=== PATIENT | female | born 1955 | race Caucasian/White ===

== ENCOUNTER 2023-02-26 09:05 | Outpatient (CLI) | payer MEDICARE, BC, SELFPAY | END 2023-02-26 09:06 | disposition home or self-care (01) | LOC: NFLDREF 03-01 05:59 | PROVIDERS: PCP Internal Medicine; Referring Provider Internal Medicine; Visit Provider Internal Medicine | DX: M85.80 Other specified disorders of bone density and structure, unspecified site (principal) | CPT/HCPCS: 82306 ==

== ENCOUNTER 2023-04-09 13:28 | Outpatient (CLI) | payer MEDICARE, BC, SELFPAY ==
--- OUTSIDE RECORDS SUMMARY | 2023-04-09 13:33 | XMS_ITS | Encounter Summary ---
Author Name Unknown Organization [facility] Address [address] [place] [address] Care Team Providers Care Cigarette Tester Name Role Phone Carmen Pace P.A.-C. Primary Care Provider Encounter Details Date Type Department Care Team (Late st Contact Info) Description 03/02/2023 Orders Only [facility] Carmen Pace P.AKiel-C. [address] [place] [phone] Screening Mammogram Breast Cancer Social History Tobacco Use Types Packs/Day Years Used Date Smoking Tobacco: Former Smokeless Tobacco: Never Alcohol Use Standard Drinks/Week Comments Yes 2 (1 standard drink = 0.6 oz pur e alcohol) Humiliation, Afraid, Rape, and Kick questionnair e Answer Date Recorded Within the last year, have y ou been afraid of your partner or ex-partner? No 12/25/2021 Within the last year, have y ou been humiliated or emotionally abused in other ways by your partner or ex-partner? No Within the last year, have y ou been kicked, hit, slapped, or otherwise physically hurt by your partner or ex-partner? No 12/25/2021 Within the last year, have y ou been raped or forced to have any kind of sexual activity by your partner or ex-partner? No 12/25/2021 Social Connection and Isolation Panel [NHANES] A nswer Date Recorded In a typical week, how many times do you talk on the phone with family, friends, or neighbors? Twice a week 12/26/19 How often do you get togethe r with friends or relatives? Once a week 12/25/2021 How often do you attend chur ch or confucianist services? 1 to 4 times per year 12/25/2021 Do you belong to any clubs o r organizations such as mandaeism groups, unions, fraternal or athletic groups, or school groups? No 12/25/2021 How often do you attend meet ings of the clubs or organizations you belong to? Never 12/25/2021 Are you , , di vorced, , never , or living with a partner? 12/25/2021 AUDIT-C Answer Date Recorded Q1: How often do you have a drink containing alcohol? Monthly or less 12/25/2021 Q2: How many drinks containi ng alcohol do you have on a typical day when you are drinking? Patient does not drink Q3: How often do you have si x or more drinks on one occasion? Never 12/25/2021 Overall Financial Resource Strain (CARDIA) Answe r Date Recorded How hard is it for you to pa y for the very basics like food, housing, medical care, and heating? Not very hard 12/25/2021 PHQ-2 Answer Date Recorded PHQ-2 Score 0 01/21/2022 [facility] of Occupat ional Health - Occupational Stress Questionnaire Answer Date Recorded Do you feel stress - tense, restless, nervous, or anxious, or unable to sleep at night because your mind is troubled all the time - these days? Only a little 12/25/2021 Exercise Vital Sign Answer Date Recorde d On average, how many days pe r week do you engage in moderate to strenuous exercise (like a brisk walk)? 0 days 12/25/2021 On average, how many minutes do you engage in exercise at this level? 0 min 12/25/2021 Hunger Vital Sign Answer Date Recorded Within the past 12 months, y ou worried that your food would run out before you got the money to buy more. Never true 12/26/19 22 Within the past 12 months, t he food you bought just didn't last and you didn't have money to get more. Never true 12/25/2021 PRAPARE - Transportation Answer Date Re corded In the past 12 months, has l ack of transportation kept you from medical appointments or from getting medications? No 11/28 In the past 12 months, has l ack of transportation kept you from meetings, work, or from getting things needed for daily living? No 12/25/2021 Housing Stability Vital Sign Answer Nnamdi e Recorded In the last 12 months, was t here a time when you were not able to pay the mortgage or rent on time? No 12/25/2021 In the last 12 months, how many places have you lived? 1 12/25/2021 In the last 12 months, was t here a time when you did not have a steady place to sleep or slept in a half-way (including now)? No 12/25/2021 Depression Answer Date Recor ded PHQ-9 Total Score (max 27) 1 01/21 Nutrition Answer Date Recorded Nutrition: EVOO Fat Source Yes 12/25 On average, how many serving s of fruits and vegetables do you eat per day (serving size is equal to 1 cup or approximately the size of a tennis ball)? 0-1 12/25/2021 Dental Answer Date Recorded Dental: Regular Dentist Yes 01/27/20 21 Employment Answer Date Recorded Employment status Employed and actively working without restrictions 12/25/2021 Education Answer Date Recorded What is the highest level of school you have completed or the highest degree you have received? 12th grade 01/19/2020 Sex and Gender Information Value Date Recorded Sex Assigned at Female 01/05/2020 9:28 AM CDT Gender Identity Female 01/25/2018 8:35 AM CDT Sexual Orientation Straight 01/25/2018 8: 35 AM CDT documented as of this encounter Plan of Treatment Not on file documented as of this encounter Visit Diagnoses Diagnosis Screening Mammogram Breast Cancer documented in this encounter Additional Health Concerns Assessment Noted Time PHQ-9 Depression Total Score: 1 01/22/20 8:33 AM CDT documented as of this encounter Care Teams Cigarette Tester Relationship Specialty Start Date End Date Carmen Pace P.A.-C. [address] [place], [place] [id number] Aparicio [phone] PCP - General 04/02/22 03/23/23 [facility] [address] [place] [address] Dentist Dentistry 01/21/22 documented as of this encounter
--- OUTSIDE RECORDS SUMMARY | 2023-04-09 13:33 | XMS_ITS | Encounter Summary ---
Author Name Unknown Organization [facility] Address [address] [place] [address] Care Team Providers Care Store Lead Name Role Phone Carmen Pace P.A.-C. Primary Care Provider Encounter Details Date Type Department Care Team (Late st Contact Info) Description 12/01/2022 Orders Only [facility]NT Carmen Pace P.AKiel-C. [address] [place] [phone] Social History Tobacco Use Types Packs/Day Years [...] 12/25/2021 How often do you attend chur or bahai services? 1 to 4 times per year 12/25/2021 Do you belong to any clubs o r organizations such as bahai groups, unions, fraternal or athletic groups, or [...] Answer Date Recorded PHQ-2 Score 0 01/21/2022 [facility] of Occupat ional Health - Occupational Stress [...] place to sleep or slept in a care home (including now)? No 12/25/2021 Depression Answer Date [...] documented as of this encounter Visit Diagnoses Not on filedocumented in this encounter Additional Health Concerns Assessment Noted Time PHQ-9 Depression Total Score: 1 01/22/20 22 8:33 AM CDT documented as of this encounter Care Teams Store Lead Relationship Specialty Start Date End Date Carmen Pace P.A.-C. [address] [place] [address] BJ PRAKASH [phone] PCP - General 04/02/22 03/23/23 [facility] [address] [place] [address] Dentist Dentistry 01/21/22 documented as of this encounter
--- OUTSIDE RECORDS SUMMARY | 2023-04-09 13:33 | XMS_ITS ---
Author Name Unknown Organization [facility] Address [address] [place] [address] Care Team Providers Care Manager Outreach Name Role Phone Unavailable Unavailable Unavailable Surgery Details Not on file Complications Check Surgery Details section. Procedure Estimated Blood Loss Check Surgery Details section. Procedure Findings Check Surgery Details section. Procedure Specimens Taken Check Surgery Details section.
--- OUTSIDE RECORDS SUMMARY | 2023-04-09 13:33 | XMS_ITS | Encounter Summary ---
Author Name Unknown Organization [facility] Address [address] [place] [address] Care Team Providers Care Automatic Dispenser Mechanic Name Role Phone Carmen Pace-Mimi Primary Care Provider Reason for Visit * Reason Comments Med Refill Encounter Details Date Type Department Care Team (Late st Contact Info) Description 01/21/2023 Refill Department of Community Internal Medicine in [place], [place] [address] [place] [address] Carmen Pace P.A.-C. [address] [place] [phone] Med Refill Social History Tobacco Use Types Packs/Day Years [...] How often do you attend chur or scientology services? 1 to 4 times per year 12/25/2021 Do you belong to any clubs o r organizations such as sikhism groups, unions, fraternal or athletic groups, or [...] Answer Date Recorded PHQ-2 Score 0 01/21/2022 [facility] of Occupat ional Health - Occupational Stress [...] place to sleep or slept in a penitentiary (including now)? No 12/25/2021 Depression Answer Date [...] AM CDT documented as of this encounter Miscellaneous Notes * Telephone Encounter - Carmen Pace P.A.-C. - 01/21/2023 4:41 PM CDT 90 days provided. Patient due for annual medication review. documented in this encounter Plan of Treatment Not on file documented as of this encounter Visit Diagnoses Diagnosis Depression Anxiety documented in this encounter Additional Health Concerns Assessment Noted Time PHQ-9 Depression Total Score: 1 01/22/20 22 8:33 AM CDT documented as of this encounter Care Teams Automatic Dispenser Mechanic Relationship Specialty Start Date End Date Carmen Pace P.A.-C. [address] [place] [address] [place] [phone] PCP - General 04/02/22 03/23/23 [facility] [address] [place] [address] Dentist Dentistry 01/21/22 documented as of this encounter
--- OUTSIDE RECORDS SUMMARY | 2023-04-09 13:33 | XMS_ITS | Encounter Summary ---
Author Name Unknown Organization [facility] Address [address] [place] [address] Care Team Providers Care Chaser Apprentice Name Role Phone Elsewhere, Pcp Primary Care Provider Unavailabl e Reason for Visit * Reason Comments Breast Cancer Screening Encounter Details Date Type Department Care Team (Late st Contact Info) Description 03/24/2023 Patient Outreach Department of Community Internal Medicine in [place], [place] [address] [place] [phone] Carmen Pace P.A.-C. [address] [place] [address] Breast Cancer Screening Social History Tobacco Use Types Packs/Day Years [...] often do you attend chur ch or church services? 1 to 4 times per year 12/25/2021 Do you belong to any clubs o r organizations such as adventist groups, unions, fraternal or athletic groups, or [...] Answer Date Recorded PHQ-2 Score 0 01/21/2022 [facility]ational [facility] Questionnaire Answer [...] documented as of this encounter Care Teams Chaser Apprentice Relationship Specialty Start Date End Date Elsewhere, Pcp PCP - General Internal Medicine 03/24/23 [facility] [address] [place] [address] Dentist Dentistry 01/21/22 documented as of this encounter
--- OUTSIDE RECORDS SUMMARY | 2023-04-09 13:33 | XMS_ITS | Clinical Summary ---
Author Name Unknown Organization [facility] Address [place], [place] [address] Care Team Providers Care Mental Health Program Specialist Name Role Phone Eulalia Prabhakar TENANT SELECTOR Primary Care Provider [phone] Allergies No known active allergies Medications No known medications Active Problems Problem Noted Date Diagnosed Date Acquired absence of both cervix and uterus 02/17 Immunizations Name Administration Dates Next Due COVID-19 vaccine ([employer] 30mcg/0.3mL) PF, MDV 06/08/2020,05/18/2020 Influenza Virus, Unspecified 01/29/2016, 01/24/2015,01/17/2014,2012 Influenza, High-dose Quadriv alent Inactivated 01/23/2020 Influenza, IIV4 01/19/2019, 8,02/17/2017,2015 Influenza, IIV4 (=>6mos) MDV 01/24/2015 Pneumococcal Poly,23-Valent (Pneumovax) 01/23/2020 Tdap 02/24/2013 Zoster (Zostavax-ZVL, live) 02/24/2013 Family History Medical History Relation Name Comments Anesthesia Problem No Family History Social History Tobacco Use Types Packs/Day Years Used Date Smoking Tobacco: Former Smokeless Tobacco: Never Comments:quit between 10-15 years ago Alcohol Use Standard Drinks/Week Comments Yes 10 (1 standard drink = 0.6 oz pu re alcohol) Social Connections Answer Date Recorded Frequency of Communication with Friends and Fami ly Not on file 03/29/2021 Financial Resource Strain Answer Date R ecorded Difficulty of Paying Living Expenses Not on file 03/29/2021 Difficulty of Paying Living Expenses Not on file 03/29/2021 Sex and Gender Information Value Date Recorded Sex Assigned at Not on file Gender Identity Not on file Sexual Orientation Not on file Obstetrics History Last Filed Vital Signs Vital Sign Reading Time Taken Comments Blood Pressure 143/87 03/06/2021 5:59 PM PERSONAL COUNSELOR Pulse 78 03/06/2021 5:59 PM PERSONAL COUNSELOR Temperature 36.9 ??C (98.5 ??F) 03/06/2021 5:59 PM CS T Respiratory Rate 16 03/06/2021 5:59 PM PERSONAL COUNSELOR Oxygen Saturation 98% 03/06/2021 5:59 PM PERSONAL COUNSELOR Inhaled Oxygen Concentration - - Weight 49.4 kg (108 lb 12.8 oz) 03/06/2021 5:59 PM PERSONAL COUNSELOR Height 154.9 cm (5' 1) 03/06/2021 5:59 PM PERSONAL COUNSELOR Body Mass Index 20.56 03/06/2021 5:59 PM PERSONAL COUNSELOR Plan of Treatment Health Maintenance Due Date Last Done Comments Depression screening for age 12+ 1966 Hepatitis C screening for ag e 18-79 1972 Mammogram for age 45-75 03/05/2009 03/05/2008, 12/27 Lipids for age 45-75 02/03/2012 02/02/2007 Zoster (shingles) series for age 50+ (2 of 3) 04/21/2013 02/24/2013 Colonoscopy through age 75 01/25/2017 01/25/2007 DEXA/DXA scan for age 65+ 2019 Medicare Wellness for age 65+ 2019 Pneumococcal series for age 65+ (2 of 2 - PCV) 01/22/2021 01/23/2020 BMI (ht and wt on same day) for age 18+ 09/10/2021 09/10/2020 COVID-19 vaccine series (2022- season) 2022 08/21/2021, 12/26/2020, 06/08/2020, Additional history exists Influenza for age 65+ 11/27/2022 01/23/2020 , 01/19/2019, 01/18/2018, Additional history exists Tetanus booster 02/24/2023 02/24/2013 Tdap Completed 02/24/2013 Advance Directives Latest Code Status on File Code Status Date Activated Date Inactivated Comments Full Code 09/11/2020 8:57 AM 09/11/2020 6:28 PM Question Answer Comments Code Status Discussion: Discussed Care Teams Mental Health Program Specialist Relationship Specialty Start Date End Date Eulalia Prabhakar NP PCP - General Nurse Practitioner 09/06/20
--- OUTSIDE RECORDS SUMMARY | 2023-04-09 13:33 | XMS_ITS | Clinical Summary ---
Author Name Unknown Organization [facility] Address [address] [place] [address] Care Team Providers Care Switchgear Repairer Name Role Phone Elsewhere, Pcp Primary Care Provider Unavailabl e Source Comments Patient records contain information from all sites at [facility]. For routine questions regarding patient records, call [phone] during business hours, M-F 8:00 AM - 5:00 PM Central Time. Record requests for emergency care only can be directed to [phone] at any time.[facility] Allergies No known active allergies Medications Medication Sig Dispensed Refills Start Date End Date Status calcium carbonate-vitamin D3 1,500 mg (600 mg calcium)-10 mcg (400 Unit) per tablet Take 1 tablet by mouth 2 (two) times a day before breakfast and dinner. 0 2021 Active escitalopram (LEXAPRO) 10 mg tabletIndications:De pression Anxiety Take 1 tablet (10 mg total) by mouth daily. 90 tablet 0 01/21/2023 Active Hospital, Clinic, or Other Facility Administered Medication Ordered Dose Route Frequency Start Date End Date Status lidocaine-EPINEPHrine 1 %-1:100,000 injection 5 mL (XYLOCAINE W/EPI)Indications:Leukodystro phy, Unspecified (HCC) 5 mL Ifil Once 05/08/2021 Ac tive Active Problems Patient Care Coordination No te Formatting of this note migh t be different from the original. Authorization to Disclose Protected Health Information to Cheo Fu (), Leobardo Fu (Son), and Can Fu (Son). 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 Chronic Kidney Disease Stage 2 Glomerular Filtration Rate 60 To 89 01/30/2021 Loss Hearing Bilateral 01/30/2021 Overview: Wears hearing aids. Hysterectomy Status Post 02/17/2017 Resolved Problems Problem Noted Date Diagnosed Date Resolved Date Leukodystrophy, Unspecified 06/02/2021 06/02/2021 Encounters Date Type Department Care Team Description 03/24/2023 Patient Outreach Department of Community Internal Medicine in [place], [place] [address] [place] [address] Carmen Pace, P.A.-C. Breast Cancer Screening 03/02/2023 [facility], P.A.-C. Screening Mammogram Breast Cancer 01/21/2023 Refill Department of Community Internal Medicine in [place], [place] [address] [place] [address] Carmen Pace, P.A.-C. Med Refill from Last 3 Months Immunizations Name Administration Dates Next Due HZV (ZOSTAVAX) 02/24/2013 Influenza high dose QV(65 ye ars or older) (PF) 01/21/2022,01/30/2021,01/23/2020 Influenza, Unspecified 01/29/2016,2014,01/17/2014,2012 PCV20 01/21/2022 PPSV23 01/23/2020 RZV (SHINGRIX) 01/21/2022(Deferred: Parental de cision) SARS-COV-2 (COVID-19) - PFIZ ER BIVALENT TS(12 YEARS OR OLDER) 02/03/2022 SARS-COV-2 (COVID-19) - PFIZ ER TS(12 years or older) 08/21/2021 Tdap 02/24/2013 influenza vaccine quad (FLUZONE/FLUARIX) (6 months and older)(PF) 01/19/2019,01/18/2018,02/17/2017 Family History Medical History Relation Name Comments Lung cancer Brother Wyatt Parkinson disease Father Rober Brain Aneurysm Mother Mary Ovarian cancer Sister 1 Pat Heart disease Sister 2 Winnie Relation Name Status Comments Brother Wyatt (Age 76) cancer Father Rober (Age 86) Parkinson' s Mother Mary (Age 77) brain aneu rysm Sister 1 Pat Alive Sister 2 Winnie (Age 84) heart Son 1 Leobardo Alive Son 2 Can Alive Social History Tobacco Use Types Packs/Day Years Used Date Smoking Tobacco: Former Smokeless Tobacco: Never Tobacco Cessation:Counseling Given: Not Answered Alcohol Use Standard Drinks/Week Comments Yes 2 [...] week 12/25/2021 How often do you attend [facility] or orthodoxy services? 1 to 4 times per year 12/25/2021 Do you belong to any clubs o r organizations such as hinduism groups, unions, fraternal or athletic groups, or [...] Answer Date Recorded PHQ-2 Score 0 01/21/2022 [facility]at affinity health partnersal Health - Occupational Stress Questionnaire Answer Date [...] place to sleep or slept in a halfway (including now)? No 12/25/2021 Depression Answer Date [...] Date Recorded Dental: Regular Dentist Yes 01/27/20 Employment Answer Date Recorded Employment status Employed [...] Orientation Straight 01/25/2018 8: 35 AM CDT Last Filed Vital Signs Vital Sign Reading Time Taken Comments Blood Pressure 110/69 02/03/2022 10:43 AM SERVICE ATTENDANT Pulse 71 02/03/2022 10:43 AM SERVICE ATTENDANT Temperature 36.4 ??C (97.6 ??F) 02/03/2022 10:[address] Respiratory Rate 12 02/03/2022 10:43 AM SERVICE ATTENDANT Oxygen Saturation 97% 06/20/2021 8:20 AM CDT Inhaled Oxygen Concentration - - Weight 48 kg (105 lb 13.1 oz) 02/03/2022 10:43 A M SERVICE ATTENDANT Height 155.3 cm (5' 1.14) 02/03/2022 10:[address] Body Mass Index 19.9 02/03/2022 10:43 AM SERVICE ATTENDANT Plan of Treatment Health Maintenance Due Date Last Done Comments CT Colonography 1955 Cologuard 1955 Hepatitis C Screening 1955 Colonoscopy 08/21/2021 08/21/2016 (Perf ormed elsewhere), 01/25/2007 Colorectal Cancer Surveillance 08/21/2021 Mammogram 02/03/2023 02/03/2022, 1106/2020, 01/23/2020, Additional history exists Zoster Vaccines (3 of 3) 02/11/2023 12/17/2022, 01/28 DTaP,Tdap,and Td Vaccines (2 - Td or Tdap) 02/24/2023 02/24/2013 Depression Screening (Annual PHQ-2) 03/29/2023 Fall Risk Screen (Annual) 03/29/2023 Fasting Glucose for Diabetes Screening 12/24/2024 12/24/2021, 03/06/2021, 01/30/2021, Additional history exists Bone Density Scan (Osteoporo sis Screen) Discontinued 2021 Pneumococcal vaccine (65+ years) Completed 01/22/20, 01/23/2020 Visit: Medicare Annual Wellness Discontinued , 01/21/2022 Influenza Vaccine Completed 12/17/2022, , 01/30/2021, Additional history exists COVID-19 Vaccine Completed 03/11/2023, 10/2021, 08/21/2021, Additional history exists Care Teams Switchgear Repairer Relationship Specialty Start Date End Date Elsewhere, Pcp PCP - General Internal Medicine 03/24/23 [facility] [address] [place] [address] Dentist Dentistry 01/21/22
--- OUTSIDE RECORDS SUMMARY | 2023-04-09 13:33 | XMS_ITS | Referral Summary ---
Author Name Unknown Organization [facility] Address [address] [place] [address] Care Team Providers Care Assistant Manager Retail Name Role Phone Elsewhere, Pcp Primary Care Provider Unavailabl e Source Comments Patient records contain information from all sites at [facility]. For routine questions regarding patient records, call [phone] during business hours, M-F 8:00 AM - 5:00 PM Central Time. Record requests for emergency care only can be directed to [phone] at any time.[facility] Encounters Date Type Department Care Team Description 03/24/2023 Patient Outreach Department of Community Internal Medicine in [address] [phone] Carmen Pace, P.A.-C. Breast Cancer Screening 03/02/2023 [facility] Pace, P.A.-C. Screening Mammogram Breast Cancer 01/21/2023 Refill Department of Community Internal Medicine in [address] [phone] Carmen Pace, P.A.-C. Med Refill from Last 3 Months Allergies No known active allergies Medications Medication [...] to Disclose Protected Health Information to Cheo Nickie (), Leobardo Nickie (Son), and Can Nickie (Son). Problem Noted Date Diagnosed Date Diverticulosis [...] Date Resolved Date Leukodystrophy, Unspecified 06/02/2021 06/02/2021 Immunizations Name Administration Dates Next Due HZV [...] quad (FLUZONE/FLUARIX) (6 months and older)(PF) 01/19/2019,01/18/2018,02/17/2017 Social History Tobacco Use Types Packs/Day Years [...] often do you attend chur ch or buddhist services? 1 to 4 times per year 12/25/2021 Do you belong to any clubs o r organizations such as jain groups, unions, fraternal or athletic groups, or [...] Answer Date Recorded PHQ-2 Score 0 01/21/2022 [facility] of Occupat ional [facility] - Occupational Stress Questionnaire Answer Date Recorded [...] place to sleep or slept in a residential (including now)? No 12/25/2021 Depression Answer Date [...] Comments Blood Pressure 110/69 02/03/2022 10:43 AM CARNIVAL WORKER Pulse 71 02/03/2022 10:43 AM CARNIVAL WORKER Temperature 36.4 ??C (97.6 ??F) 02/03/2022 10:[address] Respiratory Rate 12 02/03/2022 10:43 AM CARNIVAL WORKER Oxygen Saturation 97% 06/20/2021 8:20 AM CDT Inhaled Oxygen Concentration - - Weight 48 kg (105 lb 13.1 oz) 02/03/2022 10:43 A M CARNIVAL WORKER Height 155.3 cm (5' 1.14) 02/03/2022 10:[address] Body Mass Index 19.9 02/03/2022 10:43 AM CARNIVAL WORKER Plan of Treatment Not on file Care Teams Assistant Manager Retail Relationship Specialty Start Date End Date Elsewhere, Pcp PCP - General Internal Medicine 03/24/23 [facility] [address] [place] [address] Dentist Dentistry 01/21/22
--- NOTE | 2023-04-09 14:00 | CRLHL7_ITS ---
For Patients: As a result of the Cures Act, medical imaging exams and procedure reports are released immediately into your electronic medical record. You may view this report before your referring provider. If you have questions, please contact your health care provider. BILATERAL SCREENING MAMMOGRAM WITH COMPUTER-AIDED DETECTION AND TOMOSYNTHESIS TECHNIQUE: CC and MLO views were obtained. These mammographic images have been obtained using full-field digital technique. These mammographic images were interpreted with the benefit of computer-aided detection. Breast Tomosynthesis was used in this interpretation. COMPARISON FILM: 02/03/22, 01/30/21, 01/23/20. FINDINGS: There are scattered areas of fibroglandular density IMPRESSION: There is no radiographic evidence for malignancy. ASSESSMENT: BI-RADS Category 1: Negative RECOMMENDATION: Routine screening mammogram in 1 year. A lay language report of this examination will be provided to the patient. Mike Ring M.D. Diagnostic Radiologist [email or web address] FRANSISCO/blue Transcribed: 4:41 p.mKiel mcarthur/Dictated by: Mike Ring MD @ 04/14/2023 11:52:00 AM (Electronically Signed)
== END 2023-04-09 13:29 | disposition home or self-care (01) ==
LOC: MAMMO 13:30
PROVIDERS: PCP Internal Medicine; Visit Provider Internal Medicine
DX: Z12.31 Encounter for screening mammogram for malignant neoplasm of breast (principal)
CPT/HCPCS: 77063; 77067

== ENCOUNTER 2024-02-10 09:55 | Emergency (ER) | payer MEDICARE, BC, SELFPAY ==
[2024-02-10 10:04] VITALS: BP 125/79; PULSE 87; RESP 18; TEMP 38.2; O2SAT 95; BMI 20.8
[2024-02-10 10:46] LABS: Eosinophils Absolute Auto 0.01 K/uL (0.00-0.50); Eosinophils Percent Auto 0.1 % (0.0-7.0); Hematocrit 43.6 % (33.0-51.0); Hemoglobin* 14.2 gm/dL (12.0-16.0); Immature Granulocytes Abs Auto 0.04 K/uL (0.00-0.30); Immature Granulocytes Pct Auto 0.4 %; Lymphocytes Percent Auto 6.2 % (20-44); Mean Corpuscular HGB Conc 33 gm/dL (32-36); Mean Corpuscular Hemoglobin 30 pg (26-34); Mean Corpuscular Volume 92 fL (80-100); Monocytes Percent Auto 4.5 % (0.0-11.0); Neutrophils Percent Auto 88.8 % (42.0-72.0); Platelet Count* 119 K/uL (140-440); RDW Coefficient of Variation % 12.9 % (11.5-15.5); Red Blood Count 4.73 m/uL (4.00-5.20); White Blood Count* 10.48 K/uL (4.50-11.00)
[2024-02-10 10:57] LABS: Slide Review Reflex No
--- NOTE | 2024-02-10 11:02 | CRLHL7_ITS ---
For Patients: As a result of the Century Cures Act, medical imaging exams and procedure reports are released immediately into your electronic medical record. You may view this report before your referring provider. If you have questions, please contact your health care provider. INDICATION: Lower abdominal pain. Altered bowel habits status post cholecystectomy. COMPARISON: None available. TECHNIQUE: CT of the abdomen and pelvis with 64 cc of Isovue 370 intravenous contrast. Please note that all CT scans at this facility use dose modulation, iterative reconstruction, and/or weight-based dosing when appropriate to reduce radiation dose to as low as reasonably achievable. FINDINGS: ABDOMEN Liver: Normal contour and attenuation. No significant focal lesion. No intrahepatic biliary ductal dilatation. Patent portal veins. Patent hepatic veins. Gallbladder: Cholecystectomy. Normal common duct caliber. Pancreas: Normal contour and attenuation. No peripancreatic inflammatory changes. No significant focal lesion. Normal main duct caliber. Spleen: Not enlarged. No significant focal lesion. Patent splenic artery and vein. Adrenal Glands: Symmetrical adrenal glands. No significant focal lesion. Kidneys: Normal bilateral renal attenuation. No significant focal lesion. No nephrolith. No dilatation of the intrarenal collecting systems. No ureteral stone. Nondilated ureters. Patent renal arteries and veins. Gastrointestinal tract: Extensive diverticulosis of the descending and sigmoid colon with superimposed pericolic fat stranding consistent with acute uncomplicated diverticulitis of the proximal sigmoid colon (series 2; image 109). Normal appendix. Vascular: Chronic aortoiliac atherosclerotic mural calcification. Abdominal aorta and its major proximal branches including the celiac, superior mesenteric, inferior mesenteric, renal, and bilateral common iliac arteries are patent. Inferior vena cava, portal and superior mesenteric veins are patent. Circumaortic left renal vein. Peritoneal Cavity/Retroperitoneum: No ascites. No adenopathy. PELVIS No bladder lesion is identified. Hysterectomy. No significant ascites. No adenopathy. SKELETON AND BODY WALL Incidental note is made of a bone island in the left iliac wing. LOWER THORAX 7 mm left lower lobe solid nodule (3; 6). Partially included lower thoracic wall, lungs, pleural spaces and mediastinum are otherwise without significant incidental findings. IMPRESSION: 1. Acute uncomplicated sigmoid diverticulitis. 2. Incidental 7 mm left lower lobe solid nodule for which six-month follow-up is recommended according to Fleischner guidelines. RECOMMENDATION: 6 MONTH FOLLOW-UP NONCONTRAST CHEST CT. Please note that all CT scans at this facility use dose modulation, iterative reconstruction, and/or weight-based dosing when appropriate to reduce radiation dose to as low as reasonably achievable. Dictated by Kenn Rowley MD @ 02/10/2024 12:20:03 PM (Electronically Signed)
--- NOTE | 2024-02-10 11:03 | ED_ITS ---
HPI - Abdominal Pain General Chief Complaint: Abdominal Pain Stated Complaint: sharp abdominal pains Time Seen by Provider: 02/10/24 10:52 History of Present Illness HPI narrative: This 68-year-old female comes in with abdominal pain that started about a week ago and now has become more constant. She states that the pain is in her lower abdomen. She does not report any other symptoms. She has not had any dysuria symptoms. Her significant other stated that she had similar pain about a year ago and was prescribed a medicine for this. She took 1 of these tablets. She arrives here with normal vital signs except she does have a temperature of 100.8? F. Related Data Previous Rx's ?Medication ?Instructions ?Recorded escitalopram oxalate 10 mg tablet 10 mg PO QDAY #90 tabs 03/11/23 amoxicillin 875 mg-potassium 1 tab PO BID #14 tabs 02/10/24 clavulanate 125 mg tablet Allergies Allergy/AdvReac Type Severity Reaction Status Date / Time No Known Drug Allergies Allergy Verified 02/10/24 11:54 Review of Systems Status of ROS Reports: 10 or more systems reviewed and unremarkable except as noted in History and below Narrative Constitutional: No fevers, no weight gain or loss. Eyes: No discharge. No vision changes. HENT: No congestion, no sore throat, no ear pain. Cardiovascular: No chest pain, no palpitations. Respiratory: No shortness of breath, no wheezes, no cough. Gastrointestinal: No vomiting, no diarrhea. Lower abdominal pain as described above. Genitourinary: No dysuria, no hematuria. Musculoskeletal: Normal range of motion. Skin: No rashes, no pruritis. Neurological: No dizziness, weakness, sensory change, speech change. Endo/Heme/Allergies: No bruising or bleeding. No polydipsia. Pysch: no suicidality, no anxiety, no insomnia. All other systems reviewed and are negative. [facility] Medical History (Updated 02/10/24 @ 12:40 by Bryan Costa MD) History of diverticulitis (01/14/22) ?Z87.19 - Personal history of other diseases of the digestive system (ICD-10) Surgical History (Updated 04/09/22 @ 08:44 by Winnie Preciado MD) History of cataract surgery ?Z98.49 - Cataract extraction status, unspecified eye (ICD-10) History of cholecystectomy (2020) ?Z90.49 - Acquired absence of other specified parts of digestive tract (ICD- 10) History of tonsillectomy (1965) ?Z90.89 - Acquired absence of other organs (ICD-10) History of bilateral tubal ligation (04/22/81) ?Z98.51 - Tubal ligation status (ICD-10) History of hysterectomy (2012) ?Z90.710 - Acquired absence of both cervix and uterus (ICD-10) Family History (Updated 04/08/22 @ 13:16 by Alis Stephen) Brother Lung cancer Father Parkinson's disease Mother Brain aneurysm Sister Ovarian cancer Coronary artery disease Social History (Updated 03/11/23 @ 14:02 by Mari Turcios ~ [place]) What is your current living situation?: I presently have a place to live Problems where you live: declined to answer In the past 12 months, utilities in danger of being shut off: no In the past 12 mos, have been you worried that your food would run out before yo u had money to buy more?: never true In the past 12 mos, the food you bought just didn't last and you didn't have money to buy more?: never true Smoking Status: Former smoker How often does anyone, including family, friends and others, physically hurt you : never How often does anyone, including family, friends and others, insult or talk down to you: never How often does anyone, including family, friends and others, threaten you with harm: never How often does anyone, including family, friends and others, scream or curse at you: never Exam Narrative: Exam Narrative: Constitutional: Well-developed, well-nourished, no acute distress. HEENT: Normocephalic, atraumatic. Neck: Normal range of motion. Nontender. Supple. Heart: Regular. No murmurs. Normal rate. Intact distal pulses. Lungs: Clear to auscultation. No chest discomfort. No wheezes, rhonchi, or ra les. Abdomen: Decreased bowel sounds. Tenderness across the lower abdomen. No obvious rebound tenderness. Genitalia: Deferred. Back: No midline tenderness. Normal range of motion. Extremities: Normal range of motion. No injury. Skin: Intact. No rash. Warm. No erythema or pallor. Neurologic: No altered sensation. No weakness. Alert and oriented. Psychiatric: No suicidality. No anxiety or depression. No insomnia. Nursing notes and vitals signs are reviewed. Const: Vital Signs, click to edit/add: Vital Signs - 24 hr 02/10/24 10:04 Temperature 100.8 F H Pulse Rate [Right Pulse Oximeter] 87 Respiratory Rate 18 Blood Pressure [Ri ght Upper Arm] 125/79 Pulse Oximetry 95 Oxygen Delivery Me thod Room Air Course Vital Signs Vital signs: Initial Vital Signs Temperature 100.8 F H 02/10/24 10:04 Temperature Source Temporal Artery Scan 02/10/24 10:04 Pulse Rate 87 02/10/24 10:04 Pulse Rhythm Regular 02/10/24 10:04 Pulse Strength 3+ Normal 02/10/24 10:04 Respiratory Rate 18 02/10/24 10:04 Blood Pressure 125/79 02/10/24 10:04 Blood Pressure Mean 94 02/10/24 10:04 Blood Pressure Position Sitting 02/10/24 10:04 Pulse Oximetry 95 02/10/24 10:04 Oxygen Delivery Method Room Air 02/10/24 10:04 Vital Signs Temperature 100.8 F H 02/10/24 10:04 Pulse Rate 87 02/10/24 10:04 Respiratory Rate 18 02/10/24 10:04 Blood Pressure 125/79 02/10/24 10:04 Pulse Oximetry 95 02/10/24 10:04 Oxygen Delivery Method Room Air 02/10/24 10:04 Temperature 100.8 F H 02/10/24 10:04 Pulse Rate 87 02/10/24 10:04 Respiratory Rate 18 02/10/24 10:04 Blood Pressure 125/79 02/10/24 10:04 Pulse Oximetry 95 02/10/24 10:04 Oxygen Delivery Method Room Air 02/10/24 10:04 MDM - Abdominal Pain MDM Narrative Medical decision making narrative: This patient comes in with lower abdominal pain as described above. An IV was established and labs are acquired which returned with reassuring results. CT imaging of the abdomen and pelvis shows evidence of diverticulitis. This is uncomplicated. She also has an incidental finding of a 7 mm nodule in the left lower lung and was instructed to follow up in 6 months for reimaging. She did a rrive with a borderline fever but her white count is in normal range and other vital signs are all normal. The patient is not in much distress and feels okay to take Tylenol and ibuprofen as needed and directed for pain relief. I did provide a prescription for Augmentin. Lab Data Labs: Lab Results 02/10/24 02/10/24 Range/Units 10:30 10:58 WBC 10.48 (4.50-11.00) K/uL RBC 4.73 (4.00-5.20) m/uL Hgb 14.2 (12.0-16.0) gm/dL Hct 43.6 (33.0-51.0) % MCV 92 (80-100) fL MCH 30 (26-34) pg MCHC 33 (32-36) gm/dL RDW Coeff of Manan 12.9 (11.5-15.5) % Plt Count 119 L (140-440) K/uL Neut % (Auto) 88.8 H (42.0-72.0) % Lymph % (Auto) 6.2 L (20-44) % Sutter % (Auto) 4.5 (0.0-11.0) % Eos % (Auto) 0.1 (0.0-7.0) % Baso % (Auto) 0.0 (0.0-3.0) % Neut # (Auto) 9.30 H (1.7-7.0) K/uL Lymph # (Auto) 0.60 L (0.90-2.90) K/uL Sutter # (Auto) 0.50 (0.00-0.90) K/UL Eos # (Auto) 0.01 (0.00-0.50) K/uL Baso # (Auto) 0.00 (0.00-0.30) K/uL Abs Immat Gran (auto) 0.04 (0.00-0.30) K/uL Imm/Tot Granulo (auto) 0.4 % Sodium 135 (135-149) mmol/L Potassium 4.2 (3.6-5.1) mmol/L Chloride 101 (96-114) mmol/L Carbon Dioxide 21 (20-32) mmol/L Anion Gap 13 (7-15) mEq/L BUN 21 (7-30) mg/dL Creatinine 0.8 (0.5-1.5) mg/dL Estimated Creat Clear 40.07 Estimated GFR 80 ml/min Glucose 139 H (60-115) mg/dL Calcium 9.3 (8.4-10.6) mg/dL Urine Color Yellow (Yellow) Urine Appearance Clear (Clear) Urine pH 5.0 (5.0-8.5) Ur Specific Ord >= 1.030 (1.000-1.030) Urine Protein Negative (Negative) Urine Glucose (UA) Negative (Negative) Urine Ketones 1+ A (Negative) Urine Blood Negative (Negative) Urine Nitrite Negative (Negative) Urine Bilirubin Negative (Negative) Urine Urobilinogen 0.2 (0.2-1.0) Ur Leukocyte Esterase Negative (Negative) Urine RBC 0-2 (0-2) Urine WBC 0-2 (0-5) Ur Squamous Epith Cells Few (None-Few) Urine Bacteria Few A (None) Hyaline Casts Few (None-Few) Imaging Data CT scan - abdomen: Radiologist's impression: 1. Acute uncomplicated sigmoid diverticulitis. 2. Incidental 7 mm left lower lobe solid nodule for which six-month follow-up is recommended according to Fleischner guidelines. RECOMMENDATION: 6 MONTH FOLLOW-UP NONCONTRAST CHEST CT. Discharge Plan Discharge Clinical Impression: Diverticulitis Additional Instructions: Take medication as prescribed. Use [id number] medicines also for symptomatic relief. Follow up with MD return if worsening. Prescriptions: New amoxicillin-pot clavulanate 875-125 mg tablet 1 tab PO BID Qty: 14 0RF No Action escitalopram oxalate 10 mg tablet 10 mg PO QDAY Qty: 90 3RF Follow Up/Referrals: Winnie Preciado MD [Primary Care Provider] - Stand Alone Forms: [email or web address] Info Instructions
[2024-02-10 11:05] LABS: Appearance Urine Clear (Clear); Bilirubin Urine Negative (Negative); Blood Urine Negative (Negative); Color Urine Yellow (Yellow); Glucose Urine Negative (Negative); Ketones Urine 1+ (Negative); Leukocyte Esterase Urine Negative (Negative); Nitrite Urine Negative (Negative); Protein Urine Negative (Negative); Specific Gravity Urine >= 1.030 (1.000-1.030); Urobilinogen Urine 0.2 (0.2-1.0)
--- OUTSIDE RECORDS SUMMARY | 2024-02-10 11:13 | XMS_ITS | Clinical Summary ---
Author Organization [facility] Address [place], [place] [address] Care Team Providers Care Airport Security Screener Name Role Phone Eulalia Prabhakar [employer] CIO Primary Care Provider [phone] Allergies No known active allergies Medications No known medications Active Problems Problem Noted Date Diagnosed Date Acquired absence of both cervix and uterus 02/17 Immunizations Name Administration Dates Next Due COVID-19 vaccine (Humble Bundle NTMEPS Real-Time 30mcg/0.3mL) PF, MDV 06/08/2020,05/18/2020 Influenza Virus, Unspecified [...] Comments Blood Pressure 143/87 03/06/2021 5:59 PM ELECTRONIC PUBLISHING SPECIALIST Pulse 78 03/06/2021 5:59 PM ELECTRONIC PUBLISHING SPECIALIST Temperature 36.9 ??C (98.5 ??F) 03/06/2021 5:59 PM CS T Respiratory Rate 16 03/06/2021 5:59 PM ELECTRONIC PUBLISHING SPECIALIST Oxygen Saturation 98% 03/06/2021 5:59 PM ELECTRONIC PUBLISHING SPECIALIST Inhaled Oxygen Concentration - - Weight 49.4 kg (108 lb 12.8 oz) 03/06/2021 5:59 PM ELECTRONIC PUBLISHING SPECIALIST Height 154.9 cm (5' 1) 03/06/2021 5:59 PM ELECTRONIC PUBLISHING SPECIALIST Body Mass Index 20.56 03/06/2021 5:59 PM ELECTRONIC PUBLISHING SPECIALIST Plan of Treatment Health Maintenance Due Date [...] same day) for age 18+ 09/10/2021 09/10/2020 Tetanus booster 02/24/2023 02/24/2013 COVID-19 vaccine series ( season) 2023 08/21/2021, 12/26/2020, 06/08/2020, Additional history exists Influenza for age 65+ 11/28/2023 01/23/2020 , 01/19/2019, 01/18/2018, Additional history exists Tdap Completed 02/24/2013 Procedures Procedure Name Priority Date/Time Associated Diagnosis Comments XR MAMMO BILAT SCREEN FFDM (IA) Routine 03/05/2008 7:41 AM ELECTRONIC PUBLISHING SPECIALIST Other Screening Mammogram LIPID PANEL Routine 02/02/2007 9:59 AM ELECTRONIC PUBLISHING SPECIALIST Routine General Medical Exam from Last 3 Months or Most Recently Relevant to Health Maintenance Results * XR MAMMO BILAT SCREEN FFDM (03/05/2008 7:41 AM ELECTRONIC PUBLISHING SPECIALIST) MAMMOGRAM ACR 1 Negative Anatomical Region Laterality Modality BREASTS, Breast Left, Breast Right Bilateral Mammography 03/05/2008 7:41 AM ELECTRONIC PUBLISHING SPECIALIST Narrative 03/06/2008 12:41 PM ELECTRONIC PUBLISHING SPECIALIST Negative mammogram. ??For complete description of the mammographic examination, please reference scanned document within [employer]. ?? We are mailing a results letter to the patient. ACR 1 Negative Procedure Note Bryan Gonzalez, DO - 03/06/2008 Negative mammogram. For complete description of the mammographicexamination, please reference scanned document within [employer]. We are mailing a results letter to the patient. ACR 1 Negative Clarke Snyder MD MAMMO * LIPID PANEL (02/02/2007 9:59 AM ELECTRONIC PUBLISHING SPECIALIST) CHOLESTEROL,TOTAL 175 110 - 199 mg/dL [facility] TRIGLYCERIDES 83 <150 mg/dL [facility] HDL CHOLESTEROL 75 >40 mg/dL [facility] CHOL/HDL RATIO 2.33 <4.51 [facility] LDL CHOLESTEROL 83 <131 mg/dL [facility] PATIENT STATUS Fasting [facility] Blood specimen (specimen) BLOOD SPECIMEN / Unknown 02/02/2007 9:59 AM ELECTRONIC PUBLISHING SPECIALIST 02/02/2007 9:58 AM ELECTRONIC PUBLISHING SPECIALIST Clarke Snyder MD CHEMISTRY [facility] [address] [place] [address] from Last 3 Months or Most Recently Relevant to Health Maintenance Advance Directives * Full Code (Latest Code Status on File) Date Activated Date Inactivated Comments 09/11/2020 8:57 AM 09/11/2020 6:28 PM Question Answer Comments Code Status Discussion: Discussed Care Teams Airport Security Screener Relationship Specialty Start Date End Date Eulalia Prabhakar NP PCP - General Nurse Practitioner 09/06/20
[2024-02-10 11:21] LABS: Chloride* 101 mmol/L (96-114)
[2024-02-10 11:22] LABS: Potassium* 4.2 mmol/L (3.6-5.1); Sodium* 135 mmol/L (135-149)
[2024-02-10 11:22] LABS: Bacteria Urine Few; Hyaline Casts Urine Few (None-Few); RBC Urine 0-2 (0-2); Squamous Epithelial Cell Urine Few (None-Few); WBC Urine 0-2 (0-5)
[2024-02-10 11:24] LABS: Creatinine* 0.8 mg/dL (0.5-1.5); Est. Creatinine Clearance* 40.07; Estimated Glomerular Filt Rate 80 ml/min
[2024-02-10 11:25] LABS: Anion Gap 13 mEq/L (7-15); Blood Urea Nitrogen* 21 mg/dL (7-30); Calcium* 9.3 mg/dL (8.4-10.6); Carbon Dioxide* 21 mmol/L (20-32); Glucose* 139 mg/dL (60-115)
== END 2024-02-10 12:42 | disposition home or self-care (01) ==
PROVIDERS: Emergency Provider Emergency Medicine Emergency Medical Services; PCP Internal Medicine
DX: K57.32 Diverticulitis of large intestine without perforation or abscess without bleeding (principal)
CPT/HCPCS: 36415; 74177; 80048; 81001; 85025; 87086; 99284; Q9967

== ENCOUNTER 2024-03-15 14:01 | Outpatient (CLI) | payer MEDICARE, BC, SELFPAY ==
--- NOTE | 2024-03-15 14:30 | CRLHL7_ITS ---
For Patients: As a result of the Century Cures Act, medical imaging exams and procedure reports are released immediately into your electronic medical record. You may view this report before your referring provider. If you have questions, please contact your health care provider. DXA BONE MINERAL DENSITY STUDY Current height (in): 61.0. Weight (lb): 110.0. Menopause age: 68. Ethnicity: White. Reason for exam: Osteopenia. 1. Have you had a previous hip or vertebral fracture? No. 2. Have you had any fractures during your adult life which did not result from significant trauma (e.g., auto accident)? No. 3. Did either of your parents have a hip fracture? No. 4. Do you smoke? No. 5. Have you ever taken Glucocorticoids? No. 6. Do you have rheumatoid arthritis? No. 7. Do you have secondary osteoporosis? No. 8. Do you drink 3 or more alcoholic drinks per day? No. 9. Are you being treated for osteoporosis? No. 10. Have you ever taken any of the following medications: Actonel, Evista, Fosamax, Miacalcin, Reclast, Boniva, Forteo, HRT (i.e. estrogen/hormone therapy), Protelos, Prolia, Vitamin D, Calcium, other ??? please specify. ANSWER: Yes, vitamin D, calcium. 11. Do you have any of the following medical conditions: Anorexia or bulimia, asthma or emphysema, end stage renal disease, hyperparathyroidism, any seizure disorders, cancer, inflammatory bowel diseases, hysterectomy, other ??? please specify. ANSWER: Yes, hysterectomy. 12. What was your maximum height (inches)? 61. 13. Do you perform weight bearing exercise regularly? No. 14. Do you regularly consume dairy products? Yes. 15. Do you drink caffeinated beverages? Yes. 16. At what age did your period start? 14. 17. Are you premenopausal? No. 18. How many full-term pregnancies have you had? 2. 19. Have you ever missed your period for more than 6 months in a row (not including or menopause)? No. TECHNIQUE: Bone mineral density study was performed using the [employer]. FINDINGS: The results of the study expressed as bone mineral density (BMD) are as follows: Lumbar spine L1 to L4: BMD: 0.997 g/cm2. T-score: -0.5. Z-score: 1.6 Neck Left: BMD: 0.693 g/cm2. T-score: -1.4. Z-score: 0.4 Right: BMD: 0.704 g/cm2. T-score: -1.3. Z-score: 0.5 Total Left: BMD: 0.939 g/cm2. T-score: 0.0. Z-score: 1.5 Right: BMD: 0.946 g/cm2. T-score: 0.0. Z-score: 1.5 IMPRESSION: Osteopenia. FRAX 10-year Fracture Risk LEFT HIP: Major Osteoporotic Fracture: 8.6 percent Hip Fracture: 1.2 percent Reported Risk Factors: [place] () Neck BMD = 0.693, BMI = 20.8 RIGHT HIP: 10-year Fracture Risk Major Osteoporotic Fracture: 8.4 percent Hip Fracture: 1.1 percent Reported Risk Factors: [place] () Neck BMD = 0.704, BMI = 20.8 Mike Ring M.D. Diagnostic Radiologist [email or web address] Transcribed: 10:34 am DW/Dictated by: Mike Ring MD @ 03/16/2024 9:50:00 AM (Electronically Signed)
== END 2024-03-15 14:02 | disposition home or self-care (01) ==
LOC: RAD 14:03
PROVIDERS: PCP Internal Medicine; Visit Provider Internal Medicine
DX: M85.851 Other specified disorders of bone density and structure, right thigh (principal); M85.88 Other specified disorders of bone density and structure, other site; M85.852 Other specified disorders of bone density and structure, left thigh
CPT/HCPCS: 77080

== ENCOUNTER 2024-04-04 12:28 | Outpatient (CLI) | payer MEDICARE, BC, SELFPAY ==
[2024-04-04 13:43] VITALS: BP 128/71; PULSE 78
--- NOTE | 2024-04-04 21:47 | W.PM.STED ---
Stress Test Note Date Date Seen: 04/04/24 Date of test: 04/04/24 Providers Primary care provider: Winnie Preciado Stress test physician: Isela Doe Stress Test Note Stress test ordered: Stress Echo Indication for test: Chest pain Stress test medicine: None Results discussion: Resting EKG: Sinus rhythm, 65 beats per minute. Flipped T-waves in lead V1 and V3, poor R-wave progression in anterior precordial leads. Resting blood pressure: 134/79 Stress test: Patient is consented on exercise stress echo, treadmill is used for exercised on Carlitos protocol followed. Patient was able to exercised 8 minutes 2nd, stopping due to shortness of breath and exercise fatigue. She had no chest pain. This exercise level was equivalent to 9.7 Mets. She had a maximum heart rate of 132 beats per minute which was 103% of a calculated target heart rate of 128. She had a rate pressure product of 18,340. There was no diagnostic evidence of ischemia. Relieve patient had 2 PVCs visualized during the entire tree of the stress test. Impression: Subjectively negative, objectively negative EKG portion of this stress test. Follow up suggested: Patient is aware that echo images will be read by Cardiology to couple this for a full formal diagnostic. She was discharged from the stress test in stable condition. She will anticipate a phone call from her ordering physician once the echo images have been read.
== END 2024-04-04 12:29 | disposition home or self-care (01) ==
LOC: STRESS 12:29
PROVIDERS: PCP Internal Medicine; Visit Provider Internal Medicine
DX: R07.89 Other chest pain (principal)
CPT/HCPCS: 93016; 93325; 93351

== ENCOUNTER 2024-04-12 15:06 | Outpatient (CLI) | payer MEDICARE, BC, SELFPAY ==
--- NOTE | 2024-04-12 15:20 | CRLHL7_ITS ---
For Patients: As a result of the Century Cures Act, medical imaging exams and procedure reports are released immediately into your electronic medical record. You may view this report before your referring provider. If you have questions, please contact your health care provider. BILATERAL SCREENING MAMMOGRAM WITH COMPUTER-AIDED DETECTION AND TOMOSYNTHESIS TECHNIQUE: CC and MLO views were obtained. These mammographic images have been obtained using full-field digital technique. These mammographic images were interpreted with the benefit of computer-aided detection. Breast Tomosynthesis was used in this interpretation. COMPARISON FILM: 04/09/23, 02/03/22, 01/30/21. FINDINGS: There are scattered areas of fibroglandular density IMPRESSION: There is no radiographic evidence for malignancy. ASSESSMENT: BI-RADS Category 2: Benign RECOMMENDATION: Routine screening mammogram in 1 year. A lay language report of this examination will be provided to the patient. Mike Ring M.D. Diagnostic Radiologist [email or web address] FRANSISCO/blue Transcribed: 3:35 p.mKiel mcarthur/Dictated by: Mike Ring MD @ 04/13/2024 11:58:00 AM (Electronically Signed)
== END 2024-04-12 15:07 | disposition home or self-care (01) ==
LOC: MAMMO 15:07
PROVIDERS: PCP Internal Medicine; Visit Provider Internal Medicine
DX: Z12.31 Encounter for screening mammogram for malignant neoplasm of breast (principal)
CPT/HCPCS: 77063; 77067

== ENCOUNTER 2024-08-09 13:38 | Outpatient (CLI) | payer MEDICARE, BC, SELFPAY ==
--- NOTE | 2024-08-09 14:00 | CRLHL7_ITS ---
For Patients: As a result of the Century Cures Act, medical imaging exams and procedure reports are released immediately into your electronic medical record. You may view this report before your referring provider. If you have questions, please contact your health care provider. Indication: Follow up nodule Technique: Noncontrast CT chest Please note that all CT scans at this facility use dose modulation, iterative reconstruction, and/or weight-based dosing when appropriate to reduce radiation dose to as low as reasonably achievable. Comparison: CT abdomen and pelvis 02/10/2024 Findings: Resolution of the previously noted nodule within the left lower lobe consistent with resolved inflammation. 3 millimeter nodule within the left upper lobe, 334. Stable subtle nodular density within the right middle lobe measuring 3 millimeters, 65. 2 millimeter nodule within the right lower lobe, . No infiltrate or edema. No effusion or pneumothorax. A few scattered incidental bulla noted. Degenerative disc disease. No adenopathy. Vascular calcifications. Gallbladder absent. Impression: Resolution of inflammatory nodule within the left lower lobe. A few scattered 3 millimeter or less nodules are present elsewhere bilaterally which do not require follow-up. Please note that all CT scans at this facility use dose modulation, iterative reconstruction, and/or weight-based dosing when appropriate to reduce radiation dose to as low as reasonably achievable. Dictated by Mike Ring MD @ 08/09/2024 2:54:45 PM (Electronically Signed)
== END 2024-08-09 13:39 | disposition home or self-care (01) ==
LOC: CT 13:40
PROVIDERS: PCP Internal Medicine; Visit Provider Internal Medicine
DX: R91.1 Solitary pulmonary nodule (principal)
CPT/HCPCS: 71250